=== PATIENT | male | born 1930 | race Caucasian/White ===

== ENCOUNTER 2017-07-08 08:14 | Inpatient (IN) | payer OTHER ==
[~2017-07-08] VITALS: Ht 165.1 cm; Wt 62.1 kg
[2017-07-08 09:40] LABS: PLATELET COUNT 192 x10^3mcL (130-400); RED CELL DISTRIBUTION WIDTH 14.3 % (11.5-14.5)
[2017-07-08 09:49] LABS: BASOPHIL % 0 % (0-2)
[2017-07-08 09:51] LABS: CALCIUM 8.7 mg/dL (8.5-10.1); CARBON DIOXIDE 28.4 mmol/L (21-32); CHLORIDE SERUM 104 mmol/L (98-107); GLUCOSE SERUM 199 mg/dL (74-106); POTASSIUM SERUM 3.6 mmol/L (3.5-5.1); SODIUM SERUM 141 mmol/L (136-145)
[2017-07-08 09:59] LABS: ALBUMIN 3.5 g/dL (3.4-5.0); ALKALINE PHOSPHATASE 68 U/L (46-116); ALT/SGPT 26 U/L (16-63); AST/SGOT 32 U/L (15-37); BILIRUBIN TOTAL 0.67 mg/dL (0.20-1.00); LIPASE 52 IU/L (73-393); T4(THYROXINE) 10.2 ug/dL (4.7-13.3); TOTAL PROTEIN, SERUM 7.1 g/dL (6.4-8.2)
[2017-07-08 10:00] LABS: AMYLASE 15 U/L (25-115); CHOLESTEROL 115 mg/dL (<200); HDL CHOLESTEROL 76 mg/dL (40-60)
[2017-07-08 10:28] LABS: microscopic required? YES; urine erythrocyte 1+ (NEGATIVE)
[2017-07-08] MEDS ORDERED: CILOSTAZOL100 M1 PO (11:42)
[2017-07-08] MEDS ORDERED: LIPI20 PO (11:43)
[2017-07-08] MEDS ORDERED: CARVEDILOL3.125 M1 PO (11:44)
[2017-07-08] MEDS ORDERED: ENALAPRIL MALEAT5 MG PO (11:44)
[2017-07-08] MEDS ORDERED: NOR10 PO (11:45)
[2017-07-08] MEDS ORDERED: VITAMIN-D1000 IU PO (11:46)
[2017-07-08] MEDS ORDERED: LORAZEPAM1 MG PO (11:47)
[2017-07-08] MEDS ORDERED: APAP500 MG PO (11:48)
[2017-07-08] MEDS ORDERED: NOR10T PO (11:48)
[2017-07-08 13:27] LABS: MAGNESIUM 2.1 mg/dL (1.8-2.4); PHOSPHOROUS 3.8 mg/dL (2.5-4.9)
[2017-07-08 13:28] LABS: TRIGLYCERIDES 31 mg/dL (<150)
[2017-07-08 13:46] LABS: CHOLESTEROL/HDL RATIO 1.5
[2017-07-08 14:37] VITALS: BP 123/55
[2017-07-08 20:15] VITALS: BP 124/64
[2017-07-09 06:33] VITALS: BP 137/72
[2017-07-09 06:51] LABS: BASOPHIL % 0.1 % (0-2); PLATELET COUNT 184 x10^3mcL (130-400); RED CELL DISTRIBUTION WIDTH 14.2 % (11.5-14.5)
[2017-07-09 06:52] LABS: CARBON DIOXIDE 27.2 mmol/L (21-32); CHLORIDE SERUM 109 mmol/L (98-107); CREATININE SERUM 0.8 mg/dL (0.7-1.3); GLUCOSE SERUM 137 mg/dL (74-106); PHOSPHOROUS 3.1 mg/dL (2.5-4.9); POTASSIUM SERUM 3.5 mmol/L (3.5-5.1); SODIUM SERUM 145 mmol/L (136-145)
[2017-07-09 08:00] VITALS: BP 147/68
[2017-07-09] MEDS ORDERED: AUG500 PO (09:37)
[2017-07-09 12:30] VITALS: BP 158/70
[2017-07-09 18:51] VITALS: BP 159/101
[2017-07-09 18:53] VITALS: BP 128/64
[2017-07-09 20:45] VITALS: BP 130/62
[2017-07-09 22:15] LABS: ALKALINE PHOSPHATASE 58 U/L (46-116); ALT/SGPT 46 U/L (16-63); AST/SGOT 127 U/L (15-37); BILIRUBIN TOTAL 0.94 mg/dL (0.20-1.00); CALCIUM 8.1 mg/dL (8.5-10.1); CARBON DIOXIDE 26.5 mmol/L (21-32); CHLORIDE SERUM 105 mmol/L (98-107); CREATININE SERUM 0.9 mg/dL (0.7-1.3); GLUCOSE SERUM 177 mg/dL (74-106); POTASSIUM SERUM 3.2 mmol/L (3.5-5.1); SODIUM SERUM 142 mmol/L (136-145); TOTAL PROTEIN, SERUM 6.4 g/dL (6.4-8.2)
[2017-07-09 22:17] LABS: ALBUMIN 2.9 g/dL (3.4-5.0)
[2017-07-10 05:27] VITALS: BP 117/51
[2017-07-10 06:10] LABS: CALCIUM 7.7 mg/dL (8.5-10.1); CARBON DIOXIDE 27.1 mmol/L (21-32); CHLORIDE SERUM 108 mmol/L (98-107); GLUCOSE SERUM 197 mg/dL (74-106); PHOSPHOROUS 2.3 mg/dL (2.5-4.9); POTASSIUM SERUM 3.5 mmol/L (3.5-5.1); SODIUM SERUM 141 mmol/L (136-145)
[2017-07-10 06:11] LABS: BASOPHIL % 0.8 % (0-2); PLATELET COUNT 189 x10^3mcL (130-400); RED CELL DISTRIBUTION WIDTH 14.5 % (11.5-14.5)
[2017-07-10 08:50] VITALS: BP 112/61
[2017-07-10 11:48] VITALS: BP 130/62
[2017-07-10 18:41] VITALS: BP 139/110
[2017-07-10 20:05] VITALS: BP 137/65
[2017-07-11 05:08] VITALS: BP 155/73
[2017-07-11 06:11] LABS: PLATELET COUNT 217 x10^3mcL (130-400); RED CELL DISTRIBUTION WIDTH 14.2 % (11.5-14.5)
[2017-07-11 06:29] LABS: CALCIUM 8.1 mg/dL (8.5-10.1); CARBON DIOXIDE 25.6 mmol/L (21-32); CHLORIDE SERUM 101 mmol/L (98-107); GLUCOSE SERUM 209 mg/dL (74-106); MAGNESIUM 1.9 mg/dL (1.8-2.4); PHOSPHOROUS 2.6 mg/dL (2.5-4.9); SODIUM SERUM 137 mmol/L (136-145)
[2017-07-11 06:47] LABS: BASOPHIL % 0 % (0-2)
[2017-07-11 09:37] VITALS: BP 132/98
[2017-07-11 17:50] VITALS: BP 137/65
[2017-07-12 03:00] LABS: BASOPHIL % 0.5 % (0-2); PLATELET COUNT 238 x10^3mcL (130-400); RED CELL DISTRIBUTION WIDTH 14.5 % (11.5-14.5)
[2017-07-12 03:45] LABS: CALCIUM 8.1 mg/dL (8.5-10.1); CARBON DIOXIDE 29.5 mmol/L (21-32); CHLORIDE SERUM 107 mmol/L (98-107); GLUCOSE SERUM 66 mg/dL (74-106); MAGNESIUM 1.8 mg/dL (1.8-2.4); PHOSPHOROUS 2.2 mg/dL (2.5-4.9); POTASSIUM SERUM 3.4 mmol/L (3.5-5.1); SODIUM SERUM 143 mmol/L (136-145)
[2017-07-12 05:43] VITALS: BP 107/56
[2017-07-12 08:28] VITALS: BP 134/68
[2017-07-12 12:07] VITALS: BP 135/74
[2017-07-12 16:58] VITALS: BP 114/56
[2017-07-12 21:51] VITALS: BP 122/59
[2017-07-13 06:05] LABS: PLATELET COUNT 264 x10^3mcL (130-400); RED CELL DISTRIBUTION WIDTH 14.4 % (11.5-14.5)
[2017-07-13 06:12] VITALS: BP 140/62
[2017-07-13 06:38] LABS: BASOPHIL % 0 % (0-2)
[2017-07-13 06:39] LABS: CALCIUM 8.2 mg/dL (8.5-10.1); CARBON DIOXIDE 27.6 mmol/L (21-32); CHLORIDE SERUM 106 mmol/L (98-107); CREATININE SERUM 0.9 mg/dL (0.7-1.3); GLUCOSE SERUM 98 mg/dL (74-106); PHOSPHOROUS 3.4 mg/dL (2.5-4.9); POTASSIUM SERUM 3.8 mmol/L (3.5-5.1); SODIUM SERUM 143 mmol/L (136-145)
[2017-07-13 14:00] VITALS: BP 104/59
[2017-07-13] MEDS ORDERED: ZYPREXA ZYDIS5 MG PO (16:31)
[2017-07-13] MEDS ORDERED: IPRATROPIUM BROM3 M2 HHN ×2 (16:32→16:33)
[2017-07-13] MEDS ORDERED: BEN25I IV (16:32)
[2017-07-13] MEDS ORDERED: CLOPIDOGREL75 M1 PO (16:33)
[2017-07-13] MEDS ORDERED: HEP5I SC (16:33)
[2017-07-13] MEDS ORDERED: NIT0.4 SL (16:34)
[2017-07-13] MEDS ORDERED: LIPI20 PO (16:34)
[2017-07-13] MEDS ORDERED: COR3 PO (16:34)
[2017-07-13] MEDS ORDERED: V5 PO (16:35)
[2017-07-13] MEDS ORDERED: NOR10 PO (16:35)
[2017-07-13] MEDS ORDERED: BUS10 PO (16:36)
[2017-07-13] MEDS ORDERED: BG FS (16:36)
[2017-07-13] MEDS ORDERED: MOR2I IV (16:36)
[2017-07-13] MEDS ORDERED: L40I IV (16:37)
[2017-07-13] MEDS ORDERED: OSCD PO (16:37)
[2017-07-13] MEDS ORDERED: COL100 PO (16:38)
[2017-07-13] MEDS ORDERED: ZOFI IV (16:38)
[2017-07-13] MEDS ORDERED: IMO2 PO (16:38)
[2017-07-13] MEDS ORDERED: GLU500 PO (16:39)
[2017-07-13] MEDS ORDERED: NEOUD TOP (16:39)
[2017-07-13] MEDS ORDERED: LAC PO (16:39)
[2017-07-13] MEDS ORDERED: LEVEMIR100 U/M1 SQ (16:39)
[2017-07-13] MEDS ORDERED: VITC PO (16:40)
[2017-07-13 17:04] VITALS: BP 133/57
[2017-07-13 19:11] VITALS: BP 133/57
== END 2017-07-13 20:16 | disposition short-term general hospital (02) | DRG 539 ==
LOC: ED 08:14 → DU 11:41
PROVIDERS: Emergency Medicine; ADMIT Family Medicine
DX: M86.172 Other acute osteomyelitis, left ankle and foot (principal); N17.0 Acute kidney failure with tubular necrosis; J96.01 Acute respiratory failure with hypoxia; I21.4 Non-ST elevation (NSTEMI) myocardial infarction; J69.0 Pneumonitis due to inhalation of food and vomit; L03.116 Cellulitis of left lower limb; I97.191 Other postprocedural cardiac functional disturbances following other surgery; E11.52 Type 2 diabetes mellitus with diabetic peripheral angiopathy with gangrene; I42.0 Dilated cardiomyopathy; R45.851 Suicidal ideations; R65.10 Systemic inflammatory response syndrome (SIRS) of non-infectious origin without acute organ dysfunction; J90 Pleural effusion, not elsewhere classified; T87.44 Infection of amputation stump, left lower extremity; E11.65 Type 2 diabetes mellitus with hyperglycemia; M86.672 Other chronic osteomyelitis, left ankle and foot; M94.0 Chondrocostal junction syndrome [Tietze]; E83.51 Hypocalcemia; E86.0 Dehydration; E83.39 Other disorders of phosphorus metabolism; I34.0 Nonrheumatic mitral (valve) insufficiency; I36.1 Nonrheumatic tricuspid (valve) insufficiency; E87.8 Other disorders of electrolyte and fluid balance, not elsewhere classified; F41.9 Anxiety disorder, unspecified; I10 Essential (primary) hypertension; M46.04 Spinal enthesopathy, thoracic region; E78.5 Hyperlipidemia, unspecified; Z66 Do not resuscitate; Z51.5 Encounter for palliative care; Z89.412 Acquired absence of left great toe; Z68.22 Body mass index [BMI] 22.0-22.9, adult; Z87.891 Personal history of nicotine dependence; Y83.5 Amputation of limb(s) as the cause of abnormal reaction of the patient, or of later complication, without mention of misadventure at the time of the procedure; Y92.009 Unspecified place in unspecified non-institutional (private) residence as the place of occurrence of the external cause
CPT/HCPCS: 36600; 82962; 83880; J0690; J1200; J1630; J1644; J1815; J1885; J1940; J1956; J2060; J2270; J2543; J3480; J3490; J7030; J7620; Q0092